=== PATIENT | male | born 1960 | race African-American/Black ===

== ENCOUNTER 2017-05-22 14:34 | Outpatient (CLI) | payer OTHER ==
[2015-01-16 21:46] VITALS: BP 128/79
--- NOTE | 2017-05-22 15:54 | Diagnostic Imaging Report ---
DARRON SCOTT [facility] [address] [facility].[address] [address] Report Submission Date: May 22, 2017 3:00:21 PM CDT Patient Study Name: HOLDEN KAUR Date: May 22, 2017 2:36:23 PM CDT Modality Type: CR Gender: M Description: SHOULDER : 64 Institution: [facility] Physician: DARRON SCOTT Examination: Plain film shoulder History: Discomfort Comparison exams: None provided Findings: 3 views of the shoulder demonstrate normal cortical margins. No evidence for fracture or dislocation. Acromioclavicular joint degenerative spurring. No soft tissue abnormality Impression: Acromioclavicular joint degenerative spurring. No evidence for fracture. If suspect soft tissue abnormality, consider obtaining MRI. Electronically signed on May 22, 2017 3:00:21 PM CDT by: Navin CABA
== END 2017-05-22 14:35 ==
LOC: RAD 14:34
PROVIDERS: ATTEND Physician Assistant
DX: M25.512 Pain in left shoulder (principal)
CPT/HCPCS: 73030

== ENCOUNTER 2018-06-15 20:26 | Emergency (ER) | payer OTHER ==
[2018-06-15] MEDS ORDERED: KETOROLAC TROMETHAMINE 30 MG/1ML VIAL IVP ONE (20:43)
[2018-06-15] MEDS ORDERED: 0.9 % SODIUM CHLORIDE 1,000 ML IV ONE (20:43)
[2018-06-15] MEDS ORDERED: ONDANSETRON HCL/PF 4 MG/ 2ML VIAL IVP ONE (20:44)
[2018-06-15] MEDS ORDERED: ONDANSETRON HCL/PF 4 MG/ 2ML VIAL ONE (20:45)
--- NOTE | 2018-06-15 20:52 | ED Physician Documentation ---
Abdominal Pain - HISTORIAN Historian: patient - HPI Stated Complaint: LLQ abdominal pain Chief Complaint: Abdominal Pain Onset: other (since 6 this am and increased over last hour ) Duration: constant Timing: still present Context: denies: out of country travel, bad food, recent trauma Severity: moderate Quality: pain, sharp Associated Symptoms: nausea, vomiting Exacerbated by: nothing Relieved by: nothing Further Comments: yes (He has a history of kidney stones. He states that this am he started with mild low back pain and LLQ abdmonial pain and then this afternoon he states he started to vomit and the pain increased. No fever. He states he did have a small bowel movement this am .) - ROS CONST: no problems GI/: dark urine, problems urinating NEURO/PSYCH: none - SOCIAL HX Smoking History: non-smoker Alcohol Use: none Drug Use: none - FAMILY HX Family History: kidney stones - PAST HX Past History: other (lithotripsy ) Ischemic Bowel Risk Factors: none Other History: none Immunizations: UTD Home Medications: Ambulatory Orders Medication Instructions Recorded NK 06/15/18 Allergies/Adverse Reactions: Allergies Allergy/AdvReac Type Severity Reaction Status Date / Time No Known Drug Allergies Allergy Verified 06/15/18 20:35 - VITAL SIGNS Vital Signs: Vital Signs Temp Pulse Resp BP Pulse Ox 99.7 F H 79 20 135/86 100 06/15/18 20:26 06/15/18 20:26 06/15/18 20:26 06/15/18 20:26 06/15/18 20:26 - REVIEWED ASSESSMENTS Nursing Assessment Reviewed: Yes Vitals Reviewed: Yes Progress - Progress Progress: 2119: pain is improved he states "its better" . No further nausea 2139: Discussed case with Dr Dillon at [place] . He requests pt is released with a few Carey for home and Flomax. Call office in am for appt DG ED Results Lab/Radiology - Lab Results Lab Results: Lab Results 06/15/18 06/15/18 06/15/18 21:27 20:48 20:48 WBC 8.00 K/ul K/ul (4.00-12.00) RBC 5.78 M/ul H M/ul (3.90-5.20) Hgb 15.3 g/dL g/dL (12.0-18.0) Hct 48.1 % % (37.0-53.0) MCV 83.0 fl fl (80.0-100.0) MCH 26.4 pg L pg (28.0-34.0) MCHC 31.8 g/dL g/dL (30.0-36.0) RDW 14.3 % % (11.3-14.3) Plt Count 193 K/mm3 K/mm3 (130-400) Neut % (Auto) 66.7 % % (39.0-79.0) Lymph % (Auto) 23.6 % % (16.0-50.0) Cook % (Auto) 7.9 % % (0.0-11.0) Eos % (Auto) 1.4 % % (0.0-6.8) Baso % (Auto) 0.4 (0.0-1.5) Neut # (Auto) 5.3 # k/uL # k/uL (1.4-7.7) Lymph # (Auto) 1.9 # k/uL # k/uL (0.6-4.0) Cook # (Auto) 0.6 # k/uL # k/uL (0.0-0.9) Eos # (Auto) 0.1 # k/uL # k/uL (0.0-0.6) Baso # (Auto) 0.0 # k/uL # k/uL (0.0-0.5) Sodium 143 mmol/L mmol/L (136-145) Potassium 3.5 mmol/L mmol/L (3.5-5.1) Chloride 103 mmol/L mmol/L (98-107) Carbon Dioxide 26 mmol/L mmol/L (22-30) BUN 13 mg/dL mg/dL (9-20) Creatinine 1.00 mg/dL mg/dL (0.66-1.25) Estimated Creat Clear 80 Est GFR ( Amer) > 60 (60 - ) Est GFR (Non-Af Amer) > 60 (60 - ) Glucose 111 mg/dL H mg/dL (74-106) Calcium 9.1 mg/dL mg/dL (8.4-10.2) Total Bilirubin 0.7 mg/dL mg/dL (0.2-1.3) AST 37 U/L U/L (15-46) ALT 41 U/L U/L (13-69) Alkaline Phosphatase 94 U/L U/L (38-126) Total Protein 8.0 g/dL g/dL (6.3-8.2) Albumin 3.9 g/dL g/dL (3.5-5.0) Lipase 58 U/L U/L (23-300) - Radiology Radiology Impressions: TECHNIQUE: CT of the abdomen and pelvis is performed without oral or intravenous administration of contrast. Sagittal and coronal reconstructions are performed by the technologist. FINDINGS: Visualized lung bases are clear. The liver and spleen demonstrate normal attenuation without focal defect. The gallbladder is normally distended. There is no pancreatic or adrenal abnormality. There are multiple bilateral intrarenal calculi. There is mild distention of the left ureter and the left collecting system with a 6 mm stone in the left ureter at the L5-S1 level. Ureter distal to this is of normal caliber. Bladder is unremarkable. Vascular calcification is present in the abdominal aorta. Gas and stool are present throughout the colon. The appendix is visualized and is within normal limits. Spondylitic changes are seen in the lumbar region. There is a vestigial disc space at S1-2. IMPRESSION: 6 mm left ureteral calculus at the L5-S1 level with left obstructive uropathy. Multiple bilateral intrarenal calculi. Negative appendix. Vascular calcification. Lumbar spondylosis. Electronically signed on Jun 15, 2018 9:30:42 PM CDT by: Rhys Watson - Orders Orders: ED Orders Category Date Time Status IV Started NOW Care 06/15/18 20:[address] ABD & PELVIS W/O CON Stat Exams 06/15/18 Taken CBC/PLATELET/DIFF Stat Lab 06/15/18 20:48 Completed CMP Stat Lab 06/15/18 20:48 Completed LIPASE Stat Lab 06/15/18 21:27 Received URINALYSIS Routine Lab 06/15/18 Ordered 0.9 % Sodium Chloride [Normal Saline] 1,000 ml Med 06/15/18 20:43 Active IV NOW HYDROcodone /APAP 5/325 [Carey 5/325] Med 06/15/18 21:42 Once 2 each PO NOW ONE Ketorolac Tromethamine [Toradol] Med 06/15/18 20:43 Discontinued 30 mg IVP NOW ONE Ondansetron HCl/Pf [Zofran 4 mg/2 ml] Med 06/15/18 20:45 Discontinued 4 mg .ROUTE .STK-MED ONE Ondansetron HCl/Pf [Zofran 4 mg/2 ml] Med 06/15/18 20:44 Discontinued 4 mg IVP NOW ONE Tamsulosin HCl [Flomax] Med 06/15/18 21:41 Once 0.4 mg PO NOW ONE Abdominal Pain Physical Exam - Physical Exam General Appearance: moderate distress (walking floor due to low back pain that is wrapping to front ) EENT: eye inspection normal, no signs of dehydration NECK: normal inspection RESPIRATORY: no resp distress, chest non-tender, breath sounds normal CVS: reg rate & rhythm, heart sounds normal, equal pulses, no murmur ABDOMEN: soft, no distension, abnormal bowel sounds (hypoactive ) BACK: normal inspection, CVA tenderness (L) SKIN: warm/dry, normal color NEURO: oriented X3 Vital Signs: Vital Signs Temp Pulse Resp BP Pulse Ox 99.7 F H 79 20 135/86 100 06/15/18 20:26 06/15/18 20:26 06/15/18 20:26 06/15/18 20:26 06/15/18 20:26 Discharge Clincal Impression: Kidney stone Referrals: Candy Osborn MD [Primary Care Provider] - 2 Days Comments: 1. Hydrocodone 5/325mg take 1 by mouth every 8 hours as needed for pain 2. Zofran 4 mg take 1 by mouth every 8 houres as needed for nausea 3. Flomax 0.4 mg take 1 by mouth daily 4. Miralax (OTC) for constipation 5. Increase fluids 6. Call Dr Gonzales office in am Condition: Stable Disposition: 01 HOME, SELF-CARE Decision to Admit: NO Date of Decison to Admit: 06/15/18 Decision Time: 21:53
[2018-06-15 21:05] LABS: BASOPHILS % 0.4 (0.0-1.5); EOSINOPHILS % 1.4 % (0.0-6.8); MEAN CORPUSCULAR HEMOGLOBIN 26.4 pg (28.0-34.0); MONOCYTES % 7.9 % (0.0-11.0)
[2018-06-15 21:06] LABS: NEUTROPHILS # 5.3 # k/uL (1.4-7.7); eGFR (Non-African) > 60
--- NOTE | 2018-06-15 21:36 | Diagnostic Imaging Report ---
JORGE GUNN [facility] [address] [facility] [address] [place], [place]. [address] Report Submission Date: Jun 15, 2018 9:30:42 PM CDT Patient Study Name: HOLDEN KAUR Date: Jun 15, 2018 9:10:49 PM CDT Modality Type: CT Gender: M Description: CT ABD PELVIS W/O CO : 64 Institution: [facility] Physician: JORGE GUNN CT of the abdomen and pelvis without contrast CLINICAL HISTORY: Left flank pain. Vomiting. History of kidney stones. TECHNIQUE: CT of the abdomen and pelvis is performed without oral or intravenous administration of contrast. Sagittal and coronal reconstructions are performed by the technologist. FINDINGS: Visualized lung bases are clear. The liver and spleen demonstrate normal attenuation without focal defect. The gallbladder is normally distended. There is no pancreatic or adrenal abnormality. There are multiple bilateral intrarenal calculi. There is mild distention of the left ureter and the left collecting system with a 6 mm stone in the left ureter at the L5-S1 level. Ureter distal to this is of normal caliber. Bladder is unremarkable. Vascular calcification is present in the abdominal aorta. Gas and stool are present throughout the colon. The appendix is visualized and is within normal limits. Spondylitic changes are seen in the lumbar region. There is a vestigial disc space at S1-2. IMPRESSION: 6 mm left ureteral calculus at the L5-S1 level with left obstructive uropathy. Multiple bilateral intrarenal calculi. Negative appendix. Vascular calcification. Lumbar spondylosis. Electronically signed on Jun 15, 2018 9:30:42 PM CDT by: Rhys CABA
[2018-06-15] MEDS ORDERED: TAMSULOSIN HCL 0.4 MG CAP.ER.24H PO ONE (21:41)
[2018-06-15] MEDS ORDERED: HYDROcodone /APAP 5/325 1 EACH TABLET PO ONE (21:42)
[2018-06-15] MEDS ORDERED: ONDANSETRON HCL 4 MG TAB.RAPDIS PO ONE (21:49)
[2018-06-15 22:09] VITALS: BP 120/67
[2018-06-16 07:46] LABS: APPEARANCE,URINE CLOUDY (CLEAR); COLOR,URINE AMBER (YELLOW)
[2018-06-16 07:47] LABS: OCCULT BLOOD,URINE 3+ (NEGATIVE); PH URINE 7.5 (5.0 - 8.0); UROBILINOGEN URINE 0.2 Eu (0.2-1.0)
== END 2018-06-15 22:04 | disposition home or self-care (01) ==
LOC: ED 20:26
DX: N20.0 Calculus of kidney (principal)
CPT/HCPCS: 74176; 80053; 81002; 83690; 85025; A9270; J1885; J2405; J7030; 96365; 96375; S1016

== ENCOUNTER 2018-07-30 14:45 | Outpatient (CLI) | payer OTHER ==
--- NOTE | 2018-08-06 09:58 | OP Clinic Progress Note ---
REASON FOR VISIT: This 58-year-old man was seen with a history of left-sided otalgia. He has had this bother him in a range of 6 months. It comes and goes. He occasionally has slightly muffled hearing on that left side. He has had episodes of disequilibrium that have not lasted long. He is somewhat off balance. There has been no drainage from the ear. He has taken antibiotics that he felt did not help him. He has taken a short course of steroids that did seem to help. Both ear canals are really fairly clear. There is a mild amount of inflammation on the very medial aspect of both ear canals and I placed triple antibiotic ointment on that with a long catheter. The eardrums are fairly clear and shiny. I see no middle ear fluid. No perforation. The patient's neck is not tender, although he cracked his neck with crackling sounds and does this moderately frequently. I mentioned cracking the neck because some cervical issues can cause a certain amount of tension on the middle ear tendons which retracts the eardrum. With my eye and looking at it under the microscope, the malleus of both ears are moderately retracted, a little more on the left ear than the right. This creates tension on the eardrum which can be associated with very slight muffling of the hearing, otalgia, and occasionally mild imbalance. I explained these above findings to the patient. Overall, there is not any severe observable finding. I also commented that his nasal cavities look fairly normal, as does his oropharynx and oral cavity. Without a firm diagnosis, I still do not see severe disease. 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 PLAN: I gave him a dose of steroids not to take currently, because the patient is close to 100% symptom free during this office visit. He stated to me that it was absolutely terrible for 3 or 4 days leading up to this visit, but it had abated over the last 24 to 48 hours. Steroids would give some relief if his symptoms came back and he felt it was extreme, which he felt that it had been last week. The patient is given this information. I believe he feels fairly comfortable digesting it. I did not give him an appointment to come back but he could re-visit this information on a p.r.n. basis. cc: Dr. Candy CABA
== END 2018-07-30 14:47 ==
LOC: ENT 14:45
PROVIDERS: ATTEND Otolaryngology
DX: H92.02 Otalgia, left ear (principal); R42 Dizziness and giddiness; H91.92 Unspecified hearing loss, left ear
CPT/HCPCS: 99203

== ENCOUNTER 2018-09-21 17:14 | Emergency (ER) | payer OTHER ==
--- NOTE | 2018-09-21 18:20 | Diagnostic Imaging Report ---
HANNAH ALVAREZ [facility] [address] [facility] [address] [address] Report Submission Date: Sep 21, 2018 6:05:40 PM PROFESSIONAL SECURITY OFFICER Patient Study Name: HOLDEN KAUR Date: Sep 21, 2018 5:29:46 PM PROFESSIONAL SECURITY OFFICER Modality Type: DX Gender: M Description: SHOULDER 2 OR MORE VIEWS : 64 Institution: [facility] Physician: HANNAH ALVAREZ Three views right shoulder Clinical history: Injury. Findings: Examination right shoulder in multiple views demonstrates anterior subcoracoid dislocation of the humeral head. There is no evident fracture. Suture anchors are seen in the humeral head. Impression: 1. Anterior subcoracoid dislocation of the humeral head. Electronically signed on Sep 21, 2018 6:05:40 PM PROFESSIONAL SECURITY OFFICER by: Rhys CABA
[2018-09-21] MEDS ORDERED: fentaNYL CITRATE/PF 100 MCG/2 ML INJ. IVP ONE ×3 (18:30→19:37)
[2018-09-21] MEDS ORDERED: ONDANSETRON HCL/PF 4 MG/ 2ML VIAL IVP ONE (18:43)
[2018-09-21] MEDS ORDERED: FENTANYL CITRATE/PF 250 MCG/5 ML INJ. ONE ×2 (18:43→19:25)
[2018-09-21] MEDS ORDERED: ONDANSETRON HCL/PF 4 MG/ 2ML VIAL ONE (18:43)
[2018-09-21] MEDS ORDERED: NALOXONE HCL 2 MG/2 ML ONE (18:43)
[2018-09-21] MEDS ORDERED: FLUMAZENIL 0.1 MG/ML 5ML VIAL IV ONE (18:44)
[2018-09-21] MEDS ORDERED: fentaNYL CITRATE/PF 100 MCG/2 ML INJ. IVP STA ×3 (18:55→19:35)
--- NOTE | 2018-09-21 19:45 | ED Physician Documentation ---
General Adult - HISTORIAN Historian: patient - HPI Stated Complaint: Right arm pain Chief Complaint: General Adult Onset: minutes Timing: still present Severity: moderate Further Comments: yes (Pt is a 58 yo male who has pain in his R shoulder and some numbness in his R arm and hand and says that he is unable to move his R arm. He carries his R arm with his L hand. Pt was pitching softball in a championship when the problem occurred. Pt was not struck by a ball, sx started spontaneously when he was throwing. Pt has hx ligament tears R shoulder/humeral head.) - ROS CONST: no problems EYES/ENT: none CVS/RESP: none GI/: none MS/SKIN/LYMPH: other (R shoulder/arm pain) - PAST HX Past History: kidney stones Allergies/Adverse Reactions: Allergies Allergy/AdvReac Type Severity Reaction Status Date / Time No Known Drug Allergies Allergy Verified 09/21/18 20:14 Home Medications: Ambulatory Orders Medication Instructions Recorded NK 06/15/18 - SOCIAL HX Smoking History: non-smoker Alcohol Use: occasionally - FAMILY HX Family History: No - VITAL SIGNS Vital Signs: Vital Signs Temp Pulse Resp BP Pulse Ox 98.2 F 65 18 115/69 100 09/21/18 17:23 09/21/18 17:23 09/21/18 17:23 09/21/18 17:23 09/21/18 17:23 - REVIEWED ASSESSMENTS Nursing Assessment Reviewed: Yes Vitals Reviewed: Yes Progress - Progress Progress: x-ray R shoulder: anterior R shoulder dislocation Zofran 4 mg IV Fentanyl 50 mcg IV Fentanyl 100 mcg IV Fentanyl 50 mcg IV 1st attempt at reduction post attempt x-ray; shoulder still dislocated Fentanyl 100 mcg IV Fentanyl 50 mcg IV x2 R shoulder successfully reduced, as shown on post-reduction x-ray Shoulder immobilizer. Toradol 30 mg IV D/c instructions: Rx [place] (5/325). Take one or two tablets by mouth every 4 to 6 hours as needed for moderate to severe pain. Ibuprofen 200 mg. Take 2 or 3 tablets by mouth every 8 hrs with food. Follow up with orthopedic doctor either at [facility] (ask for orthopedic clinic) or at [facility] Tel. [phone]. Shoulder immobilizer ED Results Lab/Radiology - Orders Orders: ED Orders Category Date Time Status SHOULDER 2 VIEWS OR MORE [RAD] Stat Exams 09/21/18 Completed SHOULDER 2 VIEWS OR MORE [RAD] Stat Exams 09/21/18 Taken Fentanyl Citrate/Pf [Fentanyl 250 Mcg/5 ml Vial] Med 09/21/18 18:43 Discontinued 50 mcg .ROUTE .STK-MED ONE Fentanyl Citrate/Pf [Fentanyl 250 Mcg/5 ml Vial] Med 09/21/18 19:25 Discontinued 50 mcg .ROUTE .STK-MED ONE Flumazenil [Romazicon] Med 09/21/18 18:44 Discontinued 0.5 mg IV .STK-MED ONE Naloxone HCl [Narcan] Med 09/21/18 18:43 Discontinued 1 mg .ROUTE .STK-MED ONE Ondansetron HCl/Pf [Zofran 4 mg/2 ml] Med 09/21/18 18:43 Discontinued 4 mg .ROUTE .STK-MED ONE Ondansetron HCl/Pf [Zofran 4 mg/2 ml] Med 09/21/18 18:43 Discontinued 4 mg IVP NOW ONE fentaNYL CITRATE/PF Med 09/21/18 18:30 Discontinued 50 mcg IVP NOW ONE General Adult Physical Exam - PHYSICAL EXAM GENERAL APPEARANCE: moderate distress EENT: eye inspection normal NECK: normal inspection, supple RESPIRATORY: no resp distress, chest non-tender, breath sounds normal CVS: reg rate & rhythm, heart sounds normal BACK: normal inspection SKIN: warm/dry, normal color EXTREMITIES: other (R shoulder pain, unable to move R arm, good radial/ulnar pulses, c/o hand numbness) NEURO: oriented X3, sensation nml Discharge Clincal Impression: R shoulder dislocation Referrals: Candy Osborn MD [Primary Care Provider] - Condition: Good Disposition: 01 HOME, SELF-CARE Decision to Admit: NO Decision Time: 20:21
[2018-09-21] MEDS ORDERED: KETOROLAC TROMETHAMINE 30 MG/1ML VIAL IVP ONE (20:13)
[2018-09-21 23:25] VITALS: BP 123/74
--- NOTE | 2018-09-22 08:06 | Diagnostic Imaging Report ---
HANNAH ALVAREZ [facility] [address] [facility] [address] [address] Report Submission Date: Sep 21, 2018 8:18:30 PM JAVA J2EE ARCHITECT Patient Study Name: HOLDEN KAUR Date: Sep 21, 2018 7:38:00 PM JAVA J2EE ARCHITECT Modality Type: CR Gender: M Description: SHOULDER 2 OR MORE VIEWS : 64 Institution: [facility] Physician: HANNAH ALVAREZ Right shoulder 1 view Date of Exam: September 21, 2018. History: POST REDUCTION (Hx) Findings: Since the prior study there is reduction of the shoulder dislocation. No acute fracture is identified in this single view. Fixation screws are noted in the humeral head. Impression: Reduction of dislocation. Electronically signed on Sep 21, 2018 8:18:30 PM JAVA J2EE ARCHITECT by: Priscilla CABA
--- NOTE | 2018-09-22 16:14 | Diagnostic Imaging Report ---
HANNAH ALVAREZ [facility] [address] [facility] [address] [address] Report Submission Date: Sep 21, 2018 8:18:30 PM WINDOW TINTER Patient Study Name: HOLDEN KAUR Date: Sep 21, 2018 7:38:00 PM WINDOW TINTER Modality Type: CR Gender: M Description: SHOULDER 2 OR MORE VIEWS : 64 Institution: [facility] Physician: HANNAH ALVAREZ Right shoulder 1 view Date of Exam: September 21, 2018. History: POST REDUCTION (Hx) Findings: Since the prior study there is reduction of the shoulder dislocation. No acute fracture is identified in this single view. Fixation screws are noted in the humeral head. Impression: Reduction of dislocation. Electronically signed on Sep 21, 2018 8:18:30 PM WINDOW TINTER by: Priscilla CABA
--- NOTE | 2018-09-22 16:14 | Diagnostic Imaging Report ---
HANNAH ALVAREZ [facility] [address] [facility] [address] [address] Report Submission Date: Sep 22, 2018 10:25:18 AM BUSINESS PLANNING DIRECTOR Patient Study Name: HOLDEN KAUR Date: Sep 21, 2018 7:36:25 PM BUSINESS PLANNING DIRECTOR Modality Type: CR Gender: M Description: SHOULDER 2 OR MORE VIEWS : 64 Institution: [facility] Physician: HANNAH ALVAREZ Examination: Plain film right shoulder History: POST REDUCTION 2ND ATTEMPT. RT SHOULDER PAIN. Comparison exams: 21 September 2018 Findings: Single view of the right shoulder labeled "post reduction 2" presented for interpretation. Humeral head is displaced from the osseous glenoid. Surgical anchors within the humeral head. No obvious cortical disruption. Impression: Continued shoulder dislocation. Electronically signed on Sep 22, 2018 10:25:18 AM BUSINESS PLANNING DIRECTOR by: Navin CABA
== END 2018-09-21 20:47 | disposition home or self-care (01) ==
LOC: ED 17:14
DX: S43.014A Anterior dislocation of right humerus, initial encounter (principal); X58.XXXA Exposure to other specified factors, initial encounter; Y93.64 Activity, baseball; Y92.9 Unspecified place or not applicable
CPT/HCPCS: 23650; 73030; 96374; 96375; 96376; 99284; 99285; J1885; J2405; J3010; S1016

== ENCOUNTER 2019-01-10 07:53 | Emergency (ER) | payer OTHER ==
--- NOTE | 2019-01-10 08:16 | ED Physician Documentation ---
Shoulder Injury/Pain - HISTORIAN Historian: patient - HPI Stated Complaint: L shoulder pain Chief Complaint: Shoulder Injury/ Pain Onset: other (for one year - no increase in pain ) Severity: moderate Pain: persistent Further Comments: yes (he reports pain in left shoulder x 1 year or more. He states he has seen ortho and his PCP and he denies any new injury - no change in pain. He has a "knot" on his left shoulder but this area has not changed either. He states he had a steriod shot several months ago from his ortho but he would like one today. No new symptoms.) - ROS CONST: no problems - PAST HX Past History: none Immunizations: UTD Allergies/Adverse Reactions: Allergies Allergy/AdvReac Type Severity Reaction Status Date / Time No Known Drug Allergies Allergy Verified 01/10/19 08:11 Home Medications: Ambulatory Orders Medication Instructions Recorded NK 06/15/18 - SOCIAL HX Smoking History: non-smoker Alcohol Use: none Drug Use: none - FAMILY HX Family History: none - VITAL SIGNS Vital Signs: Vital Signs Temp Pulse Resp BP Pulse Ox 98.1 F 70 16 113/88 98 01/10/19 08:05 01/10/19 08:05 01/10/19 08:05 01/10/19 08:05 01/10/19 08:05 - REVIEWED ASSESSMENT Nursing Assessment Reviewed: Yes Vitals Reviewed: Yes Shoulder Injury Physical Exam - Physical Exam General Appearance: no acute distress, alert Shoulder: no acute distress, full ROM, no dislocation, deformity (2 cm raised area that is moveable and not painful to touch ). No: soft-tissue tenderness, bony tenderness, swelling Upper Extremity: no injury below shoulder Neuro: sensation nml Vascular: no vascular compromise Skin: warm/dry, normal color Head/ENT: nml inspection Respiratory: chest non-tender, breath sounds nml, no resp. distress, heart sounds nml CVS: reg rate & rhythm, heart sounds normal Abdomen: soft Discharge Clincal Impression: Left shoulder pain Qualifiers: Chronicity: chronic Qualified Code(s): M25.512 - Pain in left shoulder; G89.29 - Other chronic pain Referrals: Candy Osborn MD [Primary Care Provider] - 2 Days Comments: 1. Prednisone 20 mg take 1 by mouth daily x 5 days 2. Tramadol 50 mg take 1 by mouth every 8 hours as needed for pain 3. Call your ortho for follow up 4. Return to ER for any increasing concerns Condition: Stable Disposition: 01 HOME, SELF-CARE Decision to Admit: NO Date of Decison to Admit: 01/10/19 Decision Time: 08:21
[2019-01-10 08:18] VITALS: BP 113/88
== END 2019-01-10 08:15 | disposition home or self-care (01) ==
LOC: ED 07:53
DX: M25.512 Pain in left shoulder (principal); G89.29 Other chronic pain
CPT/HCPCS: 99281; 99282